=== PATIENT | male | born 1945 | race Caucasian/White ===

== ENCOUNTER 2021-09-05 16:40 | Emergency (ER) | payer OTHER ==
[2021-09-05 17:19] LABS: Urine Blood Trace-intact (Negative); Urine Glucose Negative (Negative); Urine Protein Trace (Negative); Urine Specific Gravity 1.025 (1.005-1.030)
[2021-09-05 17:20] LABS: Basophils % 0.3 % (0-1.3); Hematocrit 31.6 % (39.6-49.0); Lymphocytes % 3.3 % (15.3-44.8); MPV 8.4 fL (7.6-11.3); RBC Red Blood Cell Count 3.67 M/uL (4.33-5.43)
[2021-09-05 17:40] LABS: Albumin 2.7 g/dL (3.4-5.0); Bilirubin Direct 0.2 mg/dL (0-0.2); Bilirubin Total 0.5 mg/dL (0.2-1.0); Potassium 4.5 mmol/L (3.5-5.1); Protein, Total 7.2 g/dL (6.4-8.2)
[2021-09-05] MEDS ORDERED: ONDANSETRON 4 MG/2 ML VIAL ONE (18:07)
[2021-09-05] MEDS ORDERED: NA CHLORIDE 0.9% 1,000 ML ONE ×2 (18:08→20:09)
[2021-09-05] MEDS ORDERED: MORPHINE 2 MG/ML SYR ONE ×2 (20:15→22:30)
[2021-09-05 20:30] LABS: Anisocytosis 1+; Blood Morphology Comment NOTED (NOT SEEN); Platelet Estimate INCR
--- NOTE | 2021-09-05 20:50 | RAD REPORT ---
EXAM DESCRIPTION: CT - Head Brain Wo Cont - 09/05/2021 8:36 pm CLINICAL HISTORY: vomiting, weakness COMPARISON: No comparisons TECHNIQUE: All CT scans are performed using dose optimization technique as appropriate and may inclu de automated exposure control or mA/KV adjustment according to patient size. FINDINGS: No intracranial hemorrhage, hydrocephalus or extra-axial fluid collection.No areas of brai n edema or evidence of midline shift. Moderate chronic small vessel ischemic changes. Cerebral atroph y. Calcific atherosclerosis of the intracranial vessels. The paranasal sinuses and mastoids are clear. The calvarium is intact. IMPRESSION: No acute intracranial abnormality.
--- NOTE | 2021-09-05 20:57 | RAD REPORT ---
EXAM DESCRIPTION: CTAbdomen Pelvis Wo Contrast - 09/05/2021 8:37 pm CLINICAL HISTORY: Abd pain;Nausea / vomiting COMPARISON: Abdomen Pelvis W/Wo Contrast dated 07/31/2021; Abdomen Exam Complete dated 07/02/2021 TECHNIQUE: CT of the abdomen and pelvis was performed. All CT scans are performed using dose optimization technique as appropriate and may include automated exposure control or mA/KV adjustment according to patient size. FINDINGS: Lower chest: Multi-vessel coronary artery disease. No pericardial effusion. Dependent atel ectasis. Liver: No acute abnormality or suspicious lesions. Biliary: Cholecystectomy. Stomach: No significant focal abnormality. Duodenum: No significant focal abnormality. Pancreas: No significant abnormality. Spleen: Splenomegaly. Adrenal: Adrenal nodularity without suspicious masses. Kidney/ureter: No hydronephrosis. No renal calculi. Retroperitoneum: No retroperitoneal adenopathy. Vascular: No aneurysm. Atherosclerosis. Bowel: Diverticulosis. No bowel obstruction.. Peritoneum: New gas and fluid containing collection in the right lower quadrant measuring 10.8 x 5.9 cm. No free air is identified. The appendix is no longer identified. Bladder: Grossly unremarkable. Reproductive: No adnexal masses. Bones: No acute fracture. Multilevel degenerative changes are present in the spine. Other: n/a IMPRESSION: New gas and fluid containing right lower quadrant fluid collection concerning for an abs cess presumably due to appendiceal perforation.
[2021-09-05] MEDS ORDERED: METRONIDAZOLE 500mg IVPB 500 MG/100 ML BAG IV ONE (21:39)
[2021-09-05] MEDS ORDERED: Levofloxacin500mg IV 500 MG/100 ML BAG IV ONE (21:40)
--- NOTE | 2021-09-05 22:17 | EDPHYS ---
Physician Documentation [facility] Name: Homar Hendrix Age: 75 yrs Sex: Male : 1945 Arrival Date: 09/05/2021 Time: 16:44 Bed 2 Private MD: ED Physician Cl Mancini HPI: 09/05 18:40 This 75 yrs old Male presents to ER via EMS with complaints of Abdominal pain.rn 18:40 The patient presents with abdominal pain right lower quadrant. Onset: The rn symptoms/episode began/occurred at an unknown time. The symptoms do not radiate. Associated signs and symptoms: Pertinent positives: constipation, Pertinent negatives: diarrhea, fever, hematuria, shortness of breath, vomiting, vomiting blood. The symptoms are described as crampy. Modifying factors: The symptoms are alleviated by nothing, the symptoms are aggravated by touching the area. Severity of pain: At its worst the pain was moderate in the emergency department the pain is unchanged. The patient has experienced similar episodes in the past. The patient has not recently seen a physician. Patient sent in from assisted living or half-way for generalized weakness. Patient states since yesterday feeling generalized weakness as well as right-sided abdominal pain. States constipation and does not know when the last time he had a bowel movement. Denies any trauma.. Historical: - Allergies: 16:54 PENICILLINS; jt3 - Home Meds: 16:54 bupropion HCl 150 mg Oral Tb24 1 tab once daily [Active]; WelChol 625 mg oral tab 1 jt3 tabs 2 times per day [Active]; donepezil 5 mg oral TbDi 1 tab once daily [Active]; nicotine 14 mg/24 hr TD pt24 [Active]; paroxetine HCl 10 mg oral tab 1 tab once daily [Active]; - Immunization history:: Adult Immunizations up to date. - Social history:: Smoking status: Patient/guardian denies using tobacco. - Family history:: not pertinent. - Hospitalizations: : No recent hospitalization is reported. ROS: 18:40 Constitutional: Negative for fever, chills, and weight loss, Eyes: Negative for injury, rn pain, redness, and discharge, ENT: Negative for injury, pain, and discharge, Neck: Negative for injury, pain, and swelling, Cardiovascular: Negative for chest pain, palpitations, and edema, Respiratory: Negative for shortness of breath, cough, wheezing, and pleuritic chest pain, Abdomen/GI: Positive for abdominal pain and constipation Back: Negative for injury and pain, : Negative for injury, bleeding, discharge, and swelling, MS/Extremity: Negative for injury and deformity, Skin: Negative for injury, rash, and discoloration, Neuro: Negative for headache, numbness, tingling, and seizure. Exam: 18:40 Constitutional: This is a well developed, well nourished patient who is awake, alert, rn and in no acute distress. Head/Face: Normocephalic, atraumatic. Eyes: Periorbital areas with no swelling, redness, or edema. ENT: Dry mucous membranes Cardiovascular: Regular rate and rhythm. No pulse deficits. Respiratory: Speaking full sentences, unlabored. No increased work of breathing, no retractions or nasal flaring. Abdomen/GI: Soft, tender in the right lower quadrant with focal swelling in the area. No evidence of hernia. No discoloration or peritoneal signs. Skin: Warm, dry MS/ Extremity: Pulses equal, no cyanosis. Neuro: Awake and alert, GCS 15, oriented to person, place, not time. Cranial nerves II-XII grossly intact. Motor strength 4/5 in all extremities. Sensory grossly intact. Cerebellar exam normal. Vital Signs: 16:48 BP 141 / 65; Pulse 83; Resp 17; Temp 97.4; Pulse Ox 96% on R/A; Weight 82.1 kg; jt3 17:58 BP 137 / 70; Pulse 85; Resp 17; Temp 97.6; Pulse Ox 97% on R/A; jt3 19:39 BP 122 / 71; Pulse 86; Resp 20; Temp 97.8(O); Pulse Ox 98% on R/A; Pain 7/10; kc4 21:52 BP 117 / 71; Pulse 92; Resp 20; Temp 97.8; Pulse Ox 96% on R/A; Pain 3/10; kc4 22:33 BP 121 / 70; Pulse 88; Resp 20; Pulse Ox 98% on R/A; kc4 23:30 BP 127 / 74; Pulse 90; Resp 20; Pulse Ox 99% on R/A; kc4 09/06 00:02 BP 131 / 78; Pulse 90; Resp 18; Temp 98.0(A); Pulse Ox 98% on R/A; kc4 NIH Stroke Scale Scores: 09/05 17:00 NIHSS Score: 0 jt3 MDM: 16:55 Patient medically screened. rn 22:13 Differential diagnosis: appendicitis, bowel obstruction, diverticulitis, non-specific mh7 abd pain, Peptic Ulcer Disease, Perf. Duodenal Ulcer, Perf. Gastric Ulcer, Peritonitis, Pyelonephritis, Ureterolithiasis, urinary tract infection. Data reviewed: vital signs, nurses notes, EMS record, half-way records, lab test result(s), CBC, electrolytes, radiologic studies, CT scan. Data interpreted: Pulse oximetry: on room air is 96 %. Interpretation: normal. Counseling: I had a detailed discussion with the patient and/or guardian regarding: the historical points, exam findings, and any diagnostic results supporting the discharge/admit diagnosis, lab results, radiology results, the need to transfer to another facility, [facility] does not immediately have the required specialist. Response to treatment: the patient's symptoms have mildly improved after treatment. Physician consultation: Trever Loredo MD was contacted at 21:00, after a discussion of the case, a recommendation for transfer for higher level of care is made, Needs interventional radiology for drainage which is not available here.. 09/05 17:03 Order name: CBC with Diff rn 09/05 17:03 Order name: Basic Metabolic Panel; Complete Time: 17:48 rn 09/05 17:03 Order name: LFT's; Complete Time: 17:48 rn 09/05 17:03 Order name: Lipase; Complete Time: 17:48 rn 09/05 17:19 Order name: Urine Dipstick-Ancillary; Complete Time: 17:48 EDUT 09/05 17:03 Order name: CT Head Brain wo Cont; Complete Time: 21:04 rn 09/05 19:00 Order name: Abdomen ; Complete Time: 21:04 EDMS 09/05 20:30 Order name: Manual Differential EDUT 09/05 21:24 Order name: COVID-19 SARS RT PCR (Document "Date of Onset" if Symptomatic); Complete tt3 Time: 23:15 09/05 22:09 Order name: Blood Culture Adult (2) mh7 09/05 22:10 Order name: Blood Culture EDUT 09/05 17:03 Order name: IV Start; Complete Time: 17:40 rn 09/05 17:03 Order name: Urine Dipstick-Ancillary (obtain specimen) rn Administered Medications: 17:56 Drug: NS 0.9% 1000 ml Route: IV; Rate: 1000 ml; Site: right antecubital; jt3 22:36 Follow up: IV Status: Completed infusion; IV Intake: 1000ml df1 17:56 Drug: Zofran (Ondansetron) 4 mg Route: IVP; Site: right antecubital; jt3 21:53 Follow up: Response: Nausea is decreased df1 09/06 00:23 Follow up: Response: No adverse reaction 4 09/05 20:04 Drug: NS 0.9% 1000 ml Route: IV; Rate: 125 ml/hr; Site: right antecubital; kc4 09/06 00:23 Follow up: IV Status: Completed infusion 4 09/05 20:04 Drug: morphine 2 mg Route: IVP; Site: right antecubital; 4 21:32 Follow up: Response: Anxiety decreased kc4 21:53 Follow up: Response: Pain is decreased df1 21:32 Drug: LevaQUIN (levofloxacin) 500 mg Volume: 100 ml; Route: IVPB; Infused Over: 60 kc4 mins; Site: right antecubital; 22:34 Follow up: IV Status: Completed infusion; IV Intake: 100ml df1 09/06 00:23 Follow up: IV Status: Completed infusion 4 09/05 22:07 Drug: morphine 2 mg Route: IVP; Site: right antecubital; kc4 22:35 Follow up: Response: Pain is decreased df1 09/06 00:23 Follow up: Response: No adverse reaction 4 09/05 22:35 Drug: Flagyl (metroNIDAZOLE) 500 mg Volume: 100 ml; Route: IVPB; Rate: 200 ml/hr; df1 Infused Over: 30 mins; Site: right antecubital; 09/06 00:23 Follow up: IV Status: Completed infusion kc4 Disposition Summary: 09/05/21 22:16 Transfer Ordered Transfer Location: [place] [id number] Reason: Higher level of care mh7 Condition: Stable mh7 Problem: new mh7 Symptoms: have improved mh7 Accepting Physician: Dr. Jimenez(09/06/21 00:24) kc4 Diagnosis - Appendicitis, perforated with abscess [facility] Forms: - Medication Reconciliation Form [facility] - SBAR form [facility] NIH Stroke Scale - NIH Stroke Score Date: 09/05/2021 Time: 17:00 Total Score = 0 1a. Level of Consciousness (LOC) - 0(Alert) 1b. Level of Consciousness (LOC) (Month \\T\\ Age) - 0(Both) 1c. LOC Commands (Open \\T\\ Closes Eyes/Historic Sites Registrar) - 0(Both) 2. Best Gaze (Lateral Gaze Paresis) - 0(Normal) 3. Visual Field Loss - 0(No visual loss) 4. Facial Palsy - 0(Normal) 5a. Left Arm: Motor (10-second hold) - 0(No drift) 5b. Right Arm: Motor (10-second hold) - 0(No drift) 6a. Left Leg: Motor (5-second hold - always test supine) - 0(No drift) 6b. Right Leg: Motor (5-second hold - always test supine) - 0(No drift) 7. Limb Ataxia (finger/nose \\T\\ heel/cruz - test with eyes open) - 0(Absent) 8. Sensory Loss (pinprick arms/legs/face) - 0(Normal) 9. Best Language: Aphasia (description/naming/reading) - 0(No aphasia) 10. Dysarthria (speech clarity - read or repeat words) - 0(Normal) 11. Extinction and Inattention (visual/tactile/auditory/spatial/personal) - 0(No abnormality) Initials: jt3 Signatures: Dispatcher [employer] [facility] Ga Chowdhury MD MD rn Holmes, Maurice, MD MD 7 Marlyn Farrell kc4 Alexandra Horne df1 Negrito Wilkerson RN RN jt3 Corrections: (The following items were deleted from the chart) 09/05 19:00 17:04 Abdomen Pelvis W Con+CT.RAD.BRZ ordered. [facility] 09/06 00:24 09/05 22:16 Dr. Jimenez 7 kc4
--- NOTE | 2021-09-05 22:17 | ER ---
Nurse's Notes [facility] Name: Homar Hendrix Age: 75 yrs Sex: Male : 1945 Arrival Date: 09/05/2021 Time: 16:44 Bed 2 Private MD: Diagnosis: Appendicitis, perforated with abscess Presentation: 09/05 16:48 Chief complaint: EMS states: Pt. arrives via EMS from Assisted Living due to an aide jt3 believing the patient is more weak on the left side and intermittent vomiting since last night. On arrival patient has equal strength in both legs and arms. EMS states the facility stated the patient has hx of TIAs and unclear possible CVA. Pt. endorses right sided abdominal pain and is very tender to touch. Coronavirus screen: Vaccine status: Patient reports receiving the 2nd dose of the covid vaccine. Ebola Screen: Patient negative for fever greater than or equal to 101.5 degrees Fahrenheit, and additional compatible Ebola Virus Disease symptoms Patient denies exposure to infectious person. Patient denies travel to an Ebola-affected area in the 21 days before illness onset. Initial Sepsis Screen: Does the patient meet any 2 criteria? No. Patient's initial sepsis screen is negative. Does the patient have a suspected source of infection? No. Patient's initial sepsis screen is negative. Risk Assessment: Do you want to hurt yourself or someone else? Patient reports no desire to harm self or others. Onset of symptoms was September 04, 2021. 16:48 Method Of Arrival: EMS: [facility] jt3 16:48 Acuity: YIMI 3 jt3 20:05 Note pt vomited 200ml of bloody vomit. kc4 Triage Assessment: 16:54 General: Appears in no apparent distress. Behavior is calm, cooperative. Pain: jt3 Complains of pain in abdomen Pain does not radiate. Pain currently is 8 out of 10 on a pain scale. Quality of pain is described as sharp, Pain began 1 day ago. Historical: - Allergies: 16:54 PENICILLINS; jt3 - Home Meds: 16:54 bupropion HCl 150 mg Oral Tb24 1 tab once daily [Active]; WelChol 625 mg oral tab 1 jt3 tabs 2 times per day [Active]; donepezil 5 mg oral TbDi 1 tab once daily [Active]; nicotine 14 mg/24 hr TD pt24 [Active]; paroxetine HCl 10 mg oral tab 1 tab once daily [Active]; - Immunization history:: Adult Immunizations up to date. - Social history:: Smoking status: Patient/guardian denies using tobacco. - Family history:: not pertinent. - Hospitalizations: : No recent hospitalization is reported. Screenin:58 Abuse screen: Denies threats or abuse. Denies injuries from another. Nutritional jt3 screening: No deficits noted. Tuberculosis screening: No symptoms or risk factors identified. Fall Risk None identified. Assessment: 16:58 GI: Abdomen is tender to palpation in right upper quadrant and right lower quadrant jt3 Reports lower abdominal pain, nausea. 17:00 Neuro: No deficits noted. jt3 17:59 Reassessment: Patient appears in no apparent distress at this time. Pt. still endorsing jt3 right sided abdominal pain. Pt. currently drinking PO contrast. . 21:44 :. kc4 Vital Signs: 16:48 BP 141 / 65; Pulse 83; Resp 17; Temp 97.4; Pulse Ox 96% on R/A; Weight 82.1 kg; jt3 17:58 BP 137 / 70; Pulse 85; Resp 17; Temp 97.6; Pulse Ox 97% on R/A; jt3 19:39 BP 122 / 71; Pulse 86; Resp 20; Temp 97.8(O); Pulse Ox 98% on R/A; Pain 7/10; kc4 21:52 BP 117 / 71; Pulse 92; Resp 20; Temp 97.8; Pulse Ox 96% on R/A; Pain 3/10; kc4 22:33 BP 121 / 70; Pulse 88; Resp 20; Pulse Ox 98% on R/A; kc4 23:30 BP 127 / 74; Pulse 90; Resp 20; Pulse Ox 99% on R/A; kc4 09/06 00:02 BP 131 / 78; Pulse 90; Resp 18; Temp 98.0(A); Pulse Ox 98% on R/A; kc4 NIH Stroke Scale Scores: 09/05 17:00 NIHSS Score: 0 jt3 ED Course: 16:44 Patient arrived in ED. cp 16:48 Negrito Wilkerson RN is Primary Nurse. jt3 16:54 Triage completed. jt3 16:54 Arm band placed on right wrist. jt3 16:55 Chowdhury, Ga, MD is Attending Physician. rn 16:58 Patient has correct armband on for positive identification. Bed in low position. Call jt3 light in reach. Side rails up X2. 16:58 No provider procedures requiring assistance completed. jt3 17:30 Notified ED physician of a critical lab result(s). WBC 89.6. ll1 18:01 Inserted saline lock: 20 gauge in right antecubital area, using aseptic technique. jt3 19:03 Attending Physician role handed off by Ga Chowdhury MD mh7 19:03 Cl Mancini MD is Attending Physician. mh7 20:35 CT Head Brain wo Cont In Process Unspecified. EDMS 20:37 Abdomen In Process Unspecified. EDMS 21:25 Initiated transfer at [facility] with Shruthi Dan. Stated she would do a bed check tt3 and call back with their surgeon to consult with Dr. Mancini. 21:36 COVID-19 SARS RT PCR (Document "Date of Onset" if Symptomatic) Sent. kc4 21:39 Shruthi called back with Dr. Calderón, their surgeon, to speak with Dr. Mancini tt3 regarding the transfer request. 21:46 Wilkerson cath inserted, using sterile technique, 16 Fr., by ED staff, balloon inflated, to kc4 gravity drainage, returned clear yellow urine. Patient tolerated well. 21:53 COVID-19 SARS RT PCR (Document "Date of Onset" if Symptomatic) Sent. df1 22:04 Shruthi called back with Dr. Jimenez to speak with Dr. Mancini regarding the transfer tt3 request. 22:13 Shruthi Dan gave admin approval. The pt is going to [facility] - Room tt3 1531. The accepting physician is Dr. Jimenez. Nurse to call report to . Face sheet to be faxed to per Shruthi's request. 09/06 00:23 Blood Culture Adult (2) Sent. kc4 00:23 Blood Culture Sent. kc4 Administered Medications: 09/05 17:56 Drug: NS 0.9% 1000 ml Route: IV; Rate: 1000 ml; Site: right antecubital; jt3 22:36 Follow up: IV Status: Completed infusion; IV Intake: 1000ml df1 17:56 Drug: Zofran (Ondansetron) 4 mg Route: IVP; Site: right antecubital; jt3 21:53 Follow up: Response: Nausea is decreased df1 09/06 00:23 Follow up: Response: No adverse reaction 4 09/05 20:04 Drug: NS 0.9% 1000 ml Route: IV; Rate: 125 ml/hr; Site: right antecubital; kc4 09/06 00:23 Follow up: IV Status: Completed infusion [facility] 09/05 20:04 Drug: morphine 2 mg Route: IVP; Site: right antecubital; kc4 21:32 Follow up: Response: Anxiety decreased kc4 21:53 Follow up: Response: Pain is decreased df1 21:32 Drug: LevaQUIN (levofloxacin) 500 mg Volume: 100 ml; Route: IVPB; Infused Over: 60 kc4 mins; Site: right antecubital; 22:34 Follow up: IV Status: Completed infusion; IV Intake: 100ml df1 09/06 00:23 Follow up: IV Status: Completed infusion [facility] 09/05 22:07 Drug: morphine 2 mg Route: IVP; Site: right antecubital; kc4 22:35 Follow up: Response: Pain is decreased df1 09/06 00:23 Follow up: Response: No adverse reaction [facility] 09/05 22:35 Drug: Flagyl (metroNIDAZOLE) 500 mg Volume: 100 ml; Route: IVPB; Rate: 200 ml/hr; df1 Infused Over: 30 mins; Site: right antecubital; 09/06 00:23 Follow up: IV Status: Completed infusion kc4 Intake: 09/05 22:34 IV: 100ml; Total: 100ml. df1 22:36 IV: 1000ml; Total: 1100ml. df1 Outcome: 22:16 ER care complete, transfer ordered by mhAngelito 09/06 00:24 Patient left the ED. kc4 NIH Stroke Scale - NIH Stroke Score Date: 09/05/2021 Time: 17:00 Total Score = 0 1a. Level of Consciousness (LOC) - 0(Alert) 1b. Level of Consciousness (LOC) (Month \\T\\ Age) - 0(Both) 1c. LOC Commands (Open \\T\\ Closes Eyes/Recruiting Operations Consultant) - 0(Both) 2. Best Gaze (Lateral Gaze Paresis) - 0(Normal) 3. Visual Field Loss - 0(No visual loss) 4. Facial Palsy - 0(Normal) 5a. Left Arm: Motor (10-second hold) - 0(No drift) 5b. Right Arm: Motor (10-second hold) - 0(No drift) 6a. Left Leg: Motor (5-second hold - always test supine) - 0(No drift) 6b. Right Leg: Motor (5-second hold - always test supine) - 0(No drift) 7. Limb Ataxia (finger/nose \\T\\ heel/cruz - test with eyes open) - 0(Absent) 8. Sensory Loss (pinprick arms/legs/face) - 0(Normal) 9. Best Language: Aphasia (description/naming/reading) - 0(No aphasia) 10. Dysarthria (speech clarity - read or repeat words) - 0(Normal) 11. Extinction and Inattention (visual/tactile/auditory/spatial/personal) - 0(No abnormality) Initials: jt3 Signatures: Dispatcher [employer] EDMS Ga Chowdhury MD MD rn Page, Corey, JASON PA Bianka Odonnell RN RN ll1 Cl Mancini MD MD 7 Chaparro Padilla tt3 Marlyn Farrell kc4 Alexandra Horne df1 Negrito Wilkerson, SUE RN jt3
[2021-09-06 00:40] VITALS: BP 131/78; TEMP 98; O2SAT 98
--- NOTE | 2021-09-07 14:24 | EKG ---
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
== END 2021-09-06 00:24 | disposition short-term general hospital (02) ==
LOC: ER 16:40
DX: K35.33 Acute appendicitis with perforation, localized peritonitis, and gangrene, with abscess (principal); Z88.0 Allergy status to penicillin; Z20.822 Contact with and (suspected) exposure to COVID-19
CPT/HCPCS: 96365; 96367; 96361; 93005; 87040 ×2; 85025; 80048; 36415; 80076; 81003; 83690; 70450; 74176; 51702; 96375; 99284; 96366; U0003; J2270 ×2; J7030 ×2; J2405

== ENCOUNTER 2021-10-08 10:57 | Emergency (ER) | payer OTHER ==
--- OUTSIDE RECORDS SUMMARY | 2021-10-08 11:02 | XMS REPORT | Continuity of Care Document ---
:1945 Author Organization [facility] t Address [address] [place] [address] Care Team Providers Name Role Phone CRIS CALDWELL Attending Clinician Unavailable JESUSITA JIMENEZ Attending Clinician Unavailable Yunior BACA Admitting Clinician Unavailable SAYDA MONTAGUE Admitting Clinician Unavailable Payers Payer Name Policy Type Policy Number Effective Date Expiration Date S ource MEDICARE A B [id number] 2012 00:00:00 [employer] INDEMNITY [id number] 2021 NON CONTR 00:00:00 Problems This patient has no known problems. Allergies, Adverse Reactions, Alerts Allergy Allergy Status Severity Reaction(s) Onset Inactive Treating Comm ents Source Name Type Date Date Clinician PENICILL Allergy Active Other 2020-[address] [facility] [place] [facility] Medications This patient has no known medications. Vital Signs Vital Name Observation Time Observation Value Comments Source WEIGHT 2021-09-06 01:32:00 82.1 kg HEIGHT 2021-09-06 01:32:00 167.6 cm WEIGHT 2021-09-06 01:32:00 82.1 kg HEIGHT 2021-09-06 01:32:00 167.6 cm Procedures This patient has no known procedures. Encounters Start End Encounter Admission Attending Care Care Encounter Source Date/Time Date/Time Type Type Clinicians Facility Department ID 2021-09-27 2021-09-27 Outpatient [facility] [id number] [facility] 13:02:07 13:02:07 2021-09-06 2021-09-12 Inpatient ER GOLDIE CALDWELL Surgery [id number] [facility] 01:15:00 14:26:00 [place] 2021-07-17 2021-07-17 Outpatient [facility] [address] [facility] 08:56:00 08:56:00 Results Test Description Test Time Test Comments Results Result Comments Source FUNGUS CULTURE + SMEAR 2021-10-05 23:23:51 Test Item Value Reference Range Interpretation Comme nts CULTURE (BEAKER) (test code = 1095) No fungus isolated in 28 days FUNGUS SMEAR (BEAKER) (test code = 1406) No fungi seen CBC W/PLT COUNT & AUTO [id number] 14:59:35 Test Item Value Reference Range Interpretation Comments WHITE BLOOD CELL COUNT (BEAKER) 65.5 K/ L 3.5-10.5 HH (test code = 775) RED BLOOD CELL COUNT (BEAKER) 3.56 M/ L 4.63-6.08 L (test code = 761) HEMOGLOBIN (BEAKER) (test code = 9.9 GM/DL 13.7-17.5 L 410) HEMATOCRIT (BEAKER) (test code = 32.4 % 40.1-51.0 L 411) MEAN CORPUSCULAR VOLUME (BEAKER) 91.0 fL 79.0-92.2 (test code = 753) MEAN CORPUSCULAR HEMOGLOBIN 27.8 pg 25.7-32.2 (BEAKER) (test code = 751) MEAN CORPUSCULAR HEMOGLOBIN CONC 30.6 GM/DL 32.3-36.5 L (BEAKER) (test code = 752) RED CELL DISTRIBUTION WIDTH 21.0 % 11.6-14.4 H (BEAKER) (test code = 412) PLATELET COUNT (BEAKER) (test 487 K/CU MM 150-450 H code = 756) MEAN PLATELET VOLUME (BEAKER) 10.2 fL 9.4-12.4 (test code = 754) NUCLEATED RED BLOOD CELLS 0 /100 WBC 0-0 (BEAKER) (test code = 413) SARS-COV2/RT-PCR ([facility])2021-09-11 14:19:57 Test Item Value Reference Range Interpretation Comments SARS-COV2/RT-PCR Negative Negative The SARS-Co V-2 target (test code = nucleic acids a re not [id number]) detected in thi s specimen. Negative result s do not preclude SARS-C oV-2 infection and s hould not be used as the jaguar e basis for patient managem ent decisions. Nega tive results must be combine d with clinical observ ations, patient history , and epidemiological information. A false negativ e result may occur if a spec imen is improperly yared ected, transported or handled. This SARS CoV-2 test is a rapid, real-tete e RT-PCR test intended for th e qualitative detection of nu cleic acid from SARS-CoV-2 in a nasopharyngeal swab specimen collected from individuals suspected of CO VID-19 by [facility]. This test has been authorized by FDA under an EUA for use by authorized laboratories. This test is only authorized for the duration of the declaration that circumstances exist justifying the authorization of emergency use of in vitro diagnostic tests for detection and/or diagnosis of COVID-19 under Section 564(b)(1) of the Federal Food, Drug and Cosmetic Act, 21 U.S.C. 360bbb- 3(b)(1), unless the authorization is terminated or revoked sooner. Fact Sheet for Healthcare Providers: https://www.[employer] id.XOG/Documents/Xpert%20Xpress%20SARS%20CoV-2/Fact%20Sheets/3023802%20SARS-COV -2%20HEALTHCARE%20PROVIDERS%20FACT%20SHEET.pdf Fact Sheet for Healthcare Patients: https://www.[employer]/Documents/Xpert %20Xpress%20SARS%20CoV-2/Fact%20Sheets/302-3801%90SRLI-RNG-4%20PATIENT%20FACT%20 SHEET.pdfBLOOD [id number] 11:42:52 Test Item Value Reference Range Interpretation Comments CULTURE (BEAKER) (test No growth in 5 days code = 1095) The specimen volume collected for this blood culture was below the optimum (10 mL per bottle or 20 mL total). Use of lower volumes may adversely affect recovery and/or detection times of some organisms.BLOOD [id number] 11:42:41 Test Item Value Reference Range Interpretation Comments CULTURE (BEAKER) (test No growth in 5 days code = 1095) ANAEROBIC [id number] 11:31:05 Test Item Value Reference Range Interpretation Comments CULTURE (BEAKER) (test A 1+ Ba cteroides species* - code = 1095) Bacteroides pyo genes WOUND CULTURE + GRAM [id number] 09:12:57 Test Item Value Reference Interpretation Comments Range CULTURE (BEAKER) (test ESCHERICHIA COLI A 1 + Escherichia code = 1095) coli Amikacin (test code = S 1) Ampicillin + Sulbactam S (test code = 6) Aztreonam (test code = S 32) Cefepime (test code = S 51) Cefoxitin (test code = S 68) Ceftazidime (test code S = 27) Ceftriaxone (test code S = 52) Ertapenem (test code = S 38) Gentamicin (test code S = 18) Levofloxacin (test S code = 22) Meropenem (test code = S 34) Nitrofurantoin (test S code = 23) Piperacillin + S Tazobactam (test code = 29) Tetracycline (test S code = 2) Tobramycin (test code S = 25) Trimethoprim + S Sulfamethoxazole (test code = 47) CULTURE (BEAKER) (test PSEUDOMONAS A <1+ P seudomonas code = 1095) AERUGINOSA aeruginosa Amikacin (test code = See_Comment S [Auto mated 1) message] The system which generated this result transmit shen reference range : Susceptible 0-1 6 , Resistant <0 or >16 . The reference range was not used to interpret this result as normal/abnormal . Aztreonam (test code = See_Comment S [Aut omated 32) message] The system which generated this result transmit shen reference range : Susceptible 0-8 , Resistant <0 or >8 . The reference range was not u sed to interpret th is result as normal/abnormal . Cefepime (test code = See_Comment S [Auto mated 51) message] The system which generated this result transmit shen reference range : Susceptible 0-8 , Resistant <0 or >8 . The reference range was not u sed to interpret th is result as normal/abnormal . Ceftazidime (test code See_Comment S [Aut omated = 27) message] The system which generated this result transmit shen reference range : Susceptible 0-8 , Resistant <0 or >8 . The reference range was not u sed to interpret th is result as normal/abnormal . Ciprofloxacin (test See_Comment S [Automa shen code = 7) message] The system which generated this result transmit shen reference range : Susceptible 0-0 .5 , Resistant <0 or >.5 . The reference range was not used to interpret this result as normal/abnormal . Doripenem (test code = See_Comment S [Aut omated 100) message] The system which generated this result transmit shen reference range : Susceptible 0-2 , Resistant <0 or >2 . The reference range was not u sed to interpret th is result as normal/abnormal . Gentamicin (test code See_Comment S [Auto mated = 18) message] The system which generated this result transmit shen reference range : Susceptible 0-4 , Resistant <0 or >4 . The reference range was not u sed to interpret th is result as normal/abnormal . Imipenem (test code = See_Comment S [Auto mated 19) message] The system which generated this result transmit shen reference range : Susceptible 0-2 , Resistant <0 or >2 . The reference range was not u sed to interpret th is result as normal/abnormal . Levofloxacin (test See_Comment S [Automat ed code = 22) message] The system which generated this result transmit shen reference range : Susceptible 0-1 , Resistant <0 or >1 . The reference range was not u sed to interpret th is result as normal/abnormal . Meropenem (test code = See_Comment S [Aut omated 34) message] The system which generated this result transmit shen reference range : Susceptible 0-2 , Resistant <0 or >2 . The reference range was not u sed to interpret th is result as normal/abnormal . Piperacillin (test See_Comment R [Automat ed code = 24) message] The system which generated this result transmit shen reference range : Susceptible 0-1 6 , Resistant <0 or >16 . The reference range was not used to interpret this result as normal/abnormal . Piperacillin + See_Comment S [Automated Tazobactam (test code messag e] The = 29) system which generated this result transmit shen reference range : Susceptible 0-1 6 , Resistant <0 or >16 . The reference range was not used to interpret this result as normal/abnormal . Tobramycin (test code See_Comment S [Auto mated = 25) message] The system which generated this result transmit shen reference range : Susceptible 0-4 , Resistant <0 or >4 . The reference range was not u sed to interpret th is result as normal/abnormal . CULTURE (BEAKER) (test A 2+ St reptococcus code = 1095) constellatus GRAM STAIN RESULT 1+ WBCs (BEAKER) (test code = 1123) GRAM STAIN RESULT <1+ gram (BEAKER) (test code = negative rods [id number]) GRAM STAIN RESULT <1+ gram (BEAKER) (test code = positive rods [id number]) GRAM STAIN RESULT 4+ gram positive (BEAKER) (test code = cocci in chains, 446473) pairs and clusters (CELLAVISION MANUAL DIFF)2021-09-11 07:44:39 Test Item Value Reference Range Interpretation Comments NEUTROPHILS - REL 60 % (CELLAVISION)(BEAKER) (test code = 2816) LYMPHOCYTES - REL 4 % (CELLAVISION)(BEAKER) (test code = 2817) MONOCYTES - REL 9 % (CELLAVISION)(BEAKER) (test code = 2818) METAMYELOCYTES - REL 4 % 0-0 H (CELLAVISION)(BEAKER) (test code = 2821) MYELOCYTES - REL 5 % 0-0 H (CELLAVISION)(BEAKER) (test code = 2822) PROMYELOCYTES - REL 6 % 0-0 H (CELLAVSION)(BEAKER) (test code = 2825) BANDS - REL (CELLAVISION)(BEAKER) 11 % 0-10 H (test code = 2826) ATYPICAL LYMPHOCYTES - REL 1 % 0-0 H (CELLAVISION)(BEAKER) (test code = 2829) NEUTROPHILS - ABS 46.02 K/ul 1.78-5.38 H (CELLAVISION)(BEAKER) (test code = 2830) LYMPHOCYTES - ABS 3.07 K/ul 1.32-3.57 (CELLAVISION)(BEAKER) (test code = 2831) MONOCYTES - ABS 6.90 K/uL 0.30-0.82 H (CELLAVISION)(BEAKER) (test code = 2832) METAMYELOCYTES - ABS 3.07 K/uL 0.00-0.00 H (CELLAVISION)(BEAKER) (test code = 2836) MYELOCYTES-ABS 3.84 K/uL 0.00-0.00 H (CELLAVISION)(BEAKER) (test code = 2837) PROMYELOCYTES - ABS 4.60 K/uL 0.00-0.00 H (CELLAVISION)(BEAKER) (test code = 2838) BANDS - ABS (CELLAVISION)(BEAKER) 8.44 K/uL 0.00-0.80 H (test code = 2840) ATYPICAL LYMPHOCYTES - ABS 0.77 K/uL 0.00-0.00 H (CELLAVISION)(BEAKER) (test code = 2858) TOTAL COUNTED (BEAKER) (test code 100 = 1351) WBC MORPHOLOGY (BEAKER) (test Normal code = 487) PLT MORPHOLOGY (BEAKER) (test Normal code = 486) POLYCHROMATOPHILLIC RBCS(BEAKER) 2+ moderate (test code = 478) ANISOCYTOSIS (BEAKER) (test code 2+ moderate = 961) MICROCYTES (BEAKER) (test code = 2+ moderate 965) POIKILOCYTES (BEAKER) (test code 1+ few = 966) OVALOCYTES (BEAKER) (test code = 1+ few 477) ARTIFACT (CELLAVISION)(BEAKER) Present (test code = 3432) PLATELET CONCENTRATION Increased (CELLAVISION)(BEAKER) (test code = 3438) Clerk Typist ID - [id number] ID - Julia Lucinda comments: Slide comments: CBC W/PLT COUNT & AUTO [id number] 07:44:38 Test Item Value Reference Range Interpretation Comments WHITE BLOOD CELL COUNT 76.7 K/ L 3.5-10.5 HH This is a corrected (BEAKER) (test code = result . Previous 77) result was 75.3 K/ L on 09/11/2021 at 0530 CDT RED BLOOD CELL COUNT 3.69 M/ L 4.63-6.08 L This is a corrected (BEAKER) (test code = result . Previous 76) result was 3.60 M/ L on 09/11/2021 at 0530 CDT HEMOGLOBIN (BEAKER) 10.0 GM/DL 13.7-17.5 L (test code = 410) HEMATOCRIT (BEAKER) 33.1 % 40.1-51.0 L This is a corrected (test code = 411) result. Pr evious result was 32.2 % on 09/11/2021 at 0530 CDT MEAN CORPUSCULAR VOLUME 89.7 fL 79.0-92.2 This is a corrected (BEAKER) (test code = result . Previous 753) result was 89.4 fL on 09/11/2021 at 0530 CDT MEAN CORPUSCULAR 27.1 pg 25.7-32.2 This is a c orrected HEMOGLOBIN (BEAKER) result. Previous (test code = 751) result was 27.8 pg on 09/11/2021 at 0530 CDT MEAN CORPUSCULAR 30.2 GM/DL 32.3-36.5 L This is a c orrected HEMOGLOBIN CONC result. Prev ious (BEAKER) (test code = result was 31.1 752) GM/DL on 021 at 0530 CDT RED CELL DISTRIBUTION 20.7 % 11.6-14.4 H This i s a corrected WIDTH (BEAKER) (test result. Previous code = 412) result was 20.5 % on 09/11/2021 at 0530 CDT PLATELET COUNT (BEAKER) 474 K/CU MM 150-450 H This is a corrected (test code = 756) result. Pr evious result was 472 K/CU MM on 09/11/2021 at 0530 CDT MEAN PLATELET VOLUME 10.3 fL 9.4-12.4 (BEAKER) (test code = 754) NUCLEATED RED BLOOD 0 /100 WBC 0-0 CELLS (BEAKER) (test code = 413) URIC [id number] 07:24:57 Test Item Value Reference Range Interpretation Comments URIC ACID (BEAKER) (test code = 1.9 mg/dL 2.6-7.2 L 773) Clerk Typist ID - GAVIOTA MLACTATE DEHYDROGENASE (LDH)2021-09-11 07:16:59 Test Item Value Reference Range Interpretation Comments LACTATE DEHYDROGENASE (BEAKER) (test 357 U/L 125-220 H code = 635) Clerk Typist ID - GAVIOTA [id number] 07:16:58 Test Item Value Reference Range Interpretation Comments MAGNESIUM (BEAKER) (test code = 1.8 mg/dL 1.6-2.6 627) Clerk Typist ID - GAVIOTA [id number] 07:16:58 Test Item Value Reference Range Interpretation Comments PHOSPHORUS (BEAKER) (test code = 3.2 mg/dL 2.3-4.7 604) Clerk Typist ID - GAVIOTA MBASIC METABOLIC [id number] 07:16:57 Test Item Value Reference Range Interpretation Comments SODIUM (BEAKER) 135 meq/L 136-145 L (test code = 381) POTASSIUM (BEAKER) 4.3 meq/L 3.5-5.1 (test code = 379) CHLORIDE (BEAKER) 106 meq/L 98-107 (test code = 382) CO2 (BEAKER) (test 18 meq/L 22-29 L code = 355) BLOOD UREA NITROGEN 20 mg/dL 7-21 (BEAKER) (test code = 354) CREATININE (BEAKER) 0.80 mg/dL 0.57-1.25 (test code = 358) GLUCOSE RANDOM 94 mg/dL 70-105 (BEAKER) (test code = 652) CALCIUM (BEAKER) 8.0 mg/dL 8.4-10.2 L (test code = 697) EGFR (BEAKER) (test 95 mL/min/1.73 ESTIMA SHEN GFR IS code = 1092) sq m NOT ACCURATE CREATININE CLEARANCE IN PREDICTING GLOMERULAR FILTRATION RATE . ESTIMATED GFR I S NOT APPLICABLE FOR DIALYSIS PATIEN TS. Clerk Typist ID - GAVIOTA M(CELLAVISION MANUAL DIFF)2021-09-09 14:13:16 Test Item Value Reference Range Interpretation Comments NEUTROPHILS - REL 58 % (CELLAVISION)(BEAKER) (test code = 2816) LYMPHOCYTES - REL 2 % (CELLAVISION)(BEAKER) (test code = 2817) MONOCYTES - REL 4 % (CELLAVISION)(BEAKER) (test code = 2818) EOSINOPHILS - REL 2 % (CELLAVISION)(BEAKER) (test code = 2819) METAMYELOCYTES - REL 3 % 0-0 H (CELLAVISION)(BEAKER) (test code = 2821) MYELOCYTES - REL 12 % 0-0 H (CELLAVISION)(BEAKER) (test code = 2822) PROMYELOCYTES - REL 3 % 0-0 H (CELLAVSION)(BEAKER) (test code = 2825) BANDS - REL (CELLAVISION)(BEAKER) 15 % 0-10 H (test code = 2826) ATYPICAL LYMPHOCYTES - REL 1 % 0-0 H (CELLAVISION)(BEAKER) (test code = 2829) NEUTROPHILS - ABS 44.08 K/ul 1.78-5.38 H (CELLAVISION)(BEAKER) (test code = 2830) LYMPHOCYTES - ABS 1.52 K/ul 1.32-3.57 (CELLAVISION)(BEAKER) (test code = 2831) MONOCYTES - ABS 3.04 K/uL 0.30-0.82 H (CELLAVISION)(BEAKER) (test code = 2832) EOSINOPHILS - ABS 1.52 K/uL 0.04-0.54 H (CELLAVISION)(BEAKER) (test code = 2834) METAMYELOCYTES - ABS 2.28 K/uL 0.00-0.00 H (CELLAVISION)(BEAKER) (test code = 2836) MYELOCYTES-ABS 9.12 K/uL 0.00-0.00 H (CELLAVISION)(BEAKER) (test code = 2837) PROMYELOCYTES - ABS 2.28 K/uL 0.00-0.00 H (CELLAVISION)(BEAKER) (test code = 2838) BANDS - ABS (CELLAVISION)(BEAKER) 11.40 K/uL 0.00-0.80 H (test code = 2840) ATYPICAL LYMPHOCYTES - ABS 0.76 K/uL 0.00-0.00 H (CELLAVISION)(BEAKER) (test code = 2858) TOTAL COUNTED (BEAKER) (test code 100 = 1351) WBC MORPHOLOGY (BEAKER) (test Normal code = 487) LARGE PLT(BEAKER) (test code = Present 2156) POLYCHROMATOPHILLIC RBCS(BEAKER) 3+ many (test code = 478) HYPOCHROMIA (BEAKER) (test code = 2+ moderate 963) ANISOCYTOSIS (BEAKER) (test code 2+ moderate = 961) MICROCYTES (BEAKER) (test code = 2+ moderate 965) POIKILOCYTES (BEAKER) (test code 1+ few = 966) SPHEROCYTES (BEAKER) (test code = 1+ few 768) ELLIPTOCYTES (BEAKER) (test code 1+ few = 962) OVALOCYTES (BEAKER) (test code = 1+ few 477) ARTIFACT (CELLAVISION)(BEAKER) Present (test code = 3432) PLATELET CONCENTRATION Increased (CELLAVISION)(BEAKER) (test code = 3438) Clerk Typist ID - [id number] ID - Ximena PrattGeraldine comments: Slide comments: CBC W/PLT COUNT & AUTO [id number] 14:13:14 Test Item Value Reference Range Interpretation Comments WHITE BLOOD CELL COUNT (BEAKER) 76.0 K/ L 3.5-10.5 HH (test code = 775) RED BLOOD CELL COUNT (BEAKER) 3.53 M/ L 4.63-6.08 L (test code = 761) HEMOGLOBIN (BEAKER) (test code = 9.8 GM/DL 13.7-17.5 L 410) HEMATOCRIT (BEAKER) (test code = 31.3 % 40.1-51.0 L 411) MEAN CORPUSCULAR VOLUME (BEAKER) 88.7 fL 79.0-92.2 (test code = 753) MEAN CORPUSCULAR HEMOGLOBIN 27.8 pg 25.7-32.2 (BEAKER) (test code = 751) MEAN CORPUSCULAR HEMOGLOBIN CONC 31.3 GM/DL 32.3-36.5 L (BEAKER) (test code = 752) RED CELL DISTRIBUTION WIDTH 20.5 % 11.6-14.4 H (BEAKER) (test code = 412) PLATELET COUNT (BEAKER) (test 478 K/CU MM 150-450 H code = 756) MEAN PLATELET VOLUME (BEAKER) 9.8 fL 9.4-12.4 (test code = 754) NUCLEATED RED BLOOD CELLS 0 /100 WBC 0-0 (BEAKER) (test code = 413) BASIC METABOLIC [id number] 09:47:13 Test Item Value Reference Range Interpretation Comments SODIUM (BEAKER) 136 meq/L 136-145 (test code = 381) POTASSIUM (BEAKER) 4.7 meq/L 3.5-5.1 (test code = 379) CHLORIDE (BEAKER) 111 meq/L 98-107 H (test code = 382) CO2 (BEAKER) (test 16 meq/L 22-29 L code = 355) BLOOD UREA NITROGEN 22 mg/dL 7-21 H (BEAKER) (test code = 354) CREATININE (BEAKER) 0.80 mg/dL 0.57-1.25 (test code = 358) GLUCOSE RANDOM 94 mg/dL 70-105 (BEAKER) (test code = 652) CALCIUM (BEAKER) 7.5 mg/dL 8.4-10.2 L (test code = 697) EGFR (BEAKER) (test 95 mL/min/1.73 ESTIMA SHEN GFR IS code = 1092) sq m NOT ACCURATE CREATININE CLEARANCE IN PREDICTING GLOMERULAR FILTRATION RATE . ESTIMATED GFR I S NOT APPLICABLE FOR DIALYSIS PATIEN TS. Clerk Typist ID - DBCT, DRAINAGE W/ CATH [id number] 09:27:00Reason for exam:->RLQ [facility] : 1945 Sex: MFINAL REPORT CT guided right lower quadrant fluid collection drainage History: Right lower quadrant fluid collection Modality: CT, CT fluoroscopy DOSE REDUCTION: The examination was performed according to departmental dose-optimization program which includes automated exposure control, adjustment of the mA and/or kV according to patient size and/or use of iterative reconstruction technique. Sedation: Moderate sedation was administered. 0.5 mg of Versed and 25 mcg of fentanyl IV was used for moderate sedation monitored under my direction. Total intra-service time of sedation was 20 minutes. The patient's vital signs were monitored throughout the procedure and recorded in the patient's medical record by the nurse. Automobile Wrecker: Deangelo Beltran MD. Storage Architect: None. Approach: Right lower quadrant, percutaneous Estimated blood loss: < 5 cc. Specimen: 25 cc of grossly purulent appearing fluid initially aspirated, sample sent for microbiology. Technique: Informed written consent was obtained. Discussion of risks, benefits, and alternatives were made with the patient. The patient expressed understanding and agreed to proceed. A universal timeout was performed prior to starting the procedure. All elements maximal sterile barrier technique was utilized for this procedure, including utilization of sterile scrub solution for skin prep, a large sterile sheet to cover the areas of the patient that were not prepped, and hand hygiene, mask, head covering, and sterile gown for performing radiologist and scrub technologist. Patient's placed supine within the CT gantry. Initial noncontrast axial images demonstrate known air and fluid collection within the right lowerquadrant. 2% lidocaine was used for local anesthesia. Using CT guidance, a 5 Tunisian one-step catheter was advanced into the collection. There is aspiration of grossly purulent appearing fluid. A 0.035 inch wire was advanced through the catheter and coiled within the collection. The tract was dilated and an 8 Tunisian drainage catheter advanced over wire with pigtail formed within the dependent portion of the collection. Postbiopsy images confirmed placement without evidence for immediate complication.The catheter was fixed to the skin with silk suture and attached to bulb suction. A sterile dressingwas applied. The patient tolerated procedure without immediate complication. Impression: Successful CT-guided right lower quadrant fluid collection drainage with placement of an 8 Tunisian drainage catheter and aspiration of grossly purulent appearing fluid.Signed: Deangelo Beltran MDReport Verified Date/Time: 09/09/2021 09:27:41 Reading Location: [place] [address] Angio Body Reading Room CYTOMETRY [id number] 08:12:40 Test Item Value Reference Range Interpretation Comments FLOW CYTOMETRY RESULT See Separate Report POINTER (BEAKER) (test code = 2758) FLOW CYTOMETRY AP CASE # [id number] (BEAKER) (test code = 2759) LACTATE DEHYDROGENASE (LDH)2021-09-09 05:32:39 Test Item Value Reference Range Interpretation Comments LACTATE DEHYDROGENASE (BEAKER) (test 335 U/L 125-220 H code = 635) Clerk Typist ID - DBURIC [id number] 04:55:18 Test Item Value Reference Range Interpretation Comments URIC ACID (BEAKER) (test code = 2.1 mg/dL 2.6-7.2 L 773) Clerk Typist ID - MELVA [id number] 04:55:17 Test Item Value Reference Range Interpretation Comments PHOSPHORUS (BEAKER) (test code = 2.7 mg/dL 2.3-4.7 604) Clerk Typist ID - MELVA W(CELLAVISION MANUAL DIFF)2021-09-08 11:56:24 Test Item Value Reference Range Interpretation Comments NEUTROPHILS - REL 56 % (CELLAVISION)(BEAKER) (test code = 2816) LYMPHOCYTES - REL 5 % (CELLAVISION)(BEAKER) (test code = 2817) MONOCYTES - REL 8 % (CELLAVISION)(BEAKER) (test code = 2818) METAMYELOCYTES - REL 5 % 0-0 H (CELLAVISION)(BEAKER) (test code = 2821) MYELOCYTES - REL 9 % 0-0 H (CELLAVISION)(BEAKER) (test code = 2822) PROMYELOCYTES - REL 5 % 0-0 H (CELLAVSION)(BEAKER) (test code = 2825) BANDS - REL (CELLAVISION)(BEAKER) 12 % 0-10 H (test code = 2826) NEUTROPHILS - ABS 43.12 K/ul 1.78-5.38 H (CELLAVISION)(BEAKER) (test code = 2830) LYMPHOCYTES - ABS 3.85 K/ul 1.32-3.57 H (CELLAVISION)(BEAKER) (test code = 2831) MONOCYTES - ABS 6.16 K/uL 0.30-0.82 H (CELLAVISION)(BEAKER) (test code = 2832) METAMYELOCYTES - ABS 3.85 K/uL 0.00-0.00 H (CELLAVISION)(BEAKER) (test code = 2836) MYELOCYTES-ABS 6.93 K/uL 0.00-0.00 H (CELLAVISION)(BEAKER) (test code = 2837) PROMYELOCYTES - ABS 3.85 K/uL 0.00-0.00 H (CELLAVISION)(BEAKER) (test code = 2838) BANDS - ABS (CELLAVISION)(BEAKER) 9.24 K/uL 0.00-0.80 H (test code = 2840) TOTAL COUNTED (BEAKER) (test code 100 = 1351) WBC MORPHOLOGY (BEAKER) (test Normal code = 487) GIANT PLATELETS (BEAKER) (test Present code = 313) LARGE PLT(BEAKER) (test code = Present 2156) POLYCHROMATOPHILLIC RBCS(BEAKER) 3+ many (test code = 478) HYPOCHROMIA (BEAKER) (test code = 1+ few 963) ANISOCYTOSIS (BEAKER) (test code 2+ moderate = 961) MICROCYTES (BEAKER) (test code = 2+ moderate 965) POIKILOCYTES (BEAKER) (test code 1+ few = 966) SPHEROCYTES (BEAKER) (test code = 1+ few 768) ELLIPTOCYTES (BEAKER) (test code 1+ few = 962) OVALOCYTES (BEAKER) (test code = 1+ few 477) TEAR DROP CELLS (BEAKER) (test 1+ few code = 481) RALPH CELLS (BEAKER) (test code = 1+ few 474) ARTIFACT (CELLAVISION)(BEAKER) Present (test code = 3432) PLATELET CONCENTRATION Increased (CELLAVISION)(BEAKER) (test code = 3438) Clerk Typist ID - [id number] ID - Ximena Goff comments: Slide comments: CBC W/PLT COUNT & AUTO [id number] 11:56:23 Test Item Value Reference Range Interpretation Comments WHITE BLOOD CELL COUNT (BEAKER) 77.0 K/ L 3.5-10.5 HH (test code = 775) RED BLOOD CELL COUNT (BEAKER) 3.66 M/ L 4.63-6.08 L (test code = 761) HEMOGLOBIN (BEAKER) (test code = 10.1 GM/DL 13.7-17.5 L 410) HEMATOCRIT (BEAKER) (test code = 33.7 % 40.1-51.0 L 411) MEAN CORPUSCULAR VOLUME (BEAKER) 92.1 fL 79.0-92.2 (test code = 753) MEAN CORPUSCULAR HEMOGLOBIN 27.6 pg 25.7-32.2 (BEAKER) (test code = 751) MEAN CORPUSCULAR HEMOGLOBIN CONC 30.0 GM/DL 32.3-36.5 L (BEAKER) (test code = 752) RED CELL DISTRIBUTION WIDTH 20.7 % 11.6-14.4 H (BEAKER) (test code = 412) PLATELET COUNT (BEAKER) (test 464 K/CU MM 150-450 H code = 756) MEAN PLATELET VOLUME (BEAKER) 10.6 fL 9.4-12.4 (test code = 754) NUCLEATED RED BLOOD CELLS 0 /100 WBC 0-0 (BEAKER) (test code = 413) LACTATE DEHYDROGENASE (LDH)2021-09-08 10:06:21 Test Item Value Reference Range Interpretation Comments LACTATE DEHYDROGENASE (BEAKER) (test 367 U/L 125-220 H code = 635) Clerk Typist ID - [id number] 07:53:36 Test Item Value Reference Range Interpretation Comments PHOSPHORUS (BEAKER) (test code = 3.5 mg/dL 2.3-4.7 604) Clerk Typist ID - JATINDER WURIC [id number] 07:53:36 Test Item Value Reference Range Interpretation Comments URIC ACID (BEAKER) (test code = 3.3 mg/dL 2.6-7.2 773) Clerk Typist ID - JATINDER WCOMPREHENSIVE METABOLIC [id number] 07:53:35 Test Item Value Reference Range Interpretation Comments TOTAL PROTEIN 6.0 gm/dL 6.0-8.3 (BEAKER) (test code = 770) ALBUMIN (BEAKER) 3.0 g/dL 3.5-5.0 L (test code = 1145) ALKALINE PHOSPHATASE 649 U/L 40-150 H (BEAKER) (test code = 346) BILIRUBIN TOTAL 0.4 mg/dL 0.2-1.2 (BEAKER) (test code = 377) SODIUM (BEAKER) (test 139 meq/L 136-145 code = 381) POTASSIUM (BEAKER) 4.5 meq/L 3.5-5.1 (test code = 379) CHLORIDE (BEAKER) 109 meq/L 98-107 H (test code = 382) CO2 (BEAKER) (test 20 meq/L 22-29 L code = 355) BLOOD UREA NITROGEN 30 mg/dL 7-21 H (BEAKER) (test code = 354) CREATININE (BEAKER) 0.93 mg/dL 0.57-1.25 (test code = 358) GLUCOSE RANDOM 85 mg/dL 70-105 (BEAKER) (test code = 652) CALCIUM (BEAKER) 8.0 mg/dL 8.4-10.2 L (test code = 697) AST (SGOT) (BEAKER) 25 U/L 5-34 (test code = 353) ALT (SGPT) (BEAKER) 12 U/L 6-55 (test code = 347) EGFR (BEAKER) (test 80 mL/min/1.73 ESTIMA SHEN GFR IS code = 1092) sq m NOT ACCURATE CREATININE CLEARANCE IN PREDICTING GLOMERULAR FILTRATION RATE . ESTIMATED GFR I S NOT APPLICABLE FOR DIALYSIS PATIEN TS. Clerk Typist ID - JATINDER [id number] 07:53:35 Test Item Value Reference Range Interpretation Comments MAGNESIUM (BEAKER) (test code = 2.2 mg/dL 1.6-2.6 627) Clerk Typist ID - JATINDER W(CELLAVISION MANUAL DIFF)2021-09-07 10:42:08 Test Item Value Reference Range Interpretation Comments NEUTROPHILS - REL 68 % (CELLAVISION)(BEAKER) (test code = 2816) LYMPHOCYTES - REL 4 % (CELLAVISION)(BEAKER) (test code = 2817) MONOCYTES - REL 4 % (CELLAVISION)(BEAKER) (test code = 2818) METAMYELOCYTES - REL 4 % 0-0 H (CELLAVISION)(BEAKER) (test code = 2821) MYELOCYTES - REL 8 % 0-0 H (CELLAVISION)(BEAKER) (test code = 2822) PROMYELOCYTES - REL 3 % 0-0 H (CELLAVSION)(BEAKER) (test code = 2825) BANDS - REL (CELLAVISION)(BEAKER) 9 % 0-10 (test code = 2826) NEUTROPHILS - ABS 50.93 K/ul 1.78-5.38 H (CELLAVISION)(BEAKER) (test code = 2830) LYMPHOCYTES - ABS 3.00 K/ul 1.32-3.57 (CELLAVISION)(BEAKER) (test code = 2831) MONOCYTES - ABS 3.00 K/uL 0.30-0.82 H (CELLAVISION)(BEAKER) (test code = 2832) METAMYELOCYTES - ABS 3.00 K/uL 0.00-0.00 H (CELLAVISION)(BEAKER) (test code = 2836) MYELOCYTES-ABS 5.99 K/uL 0.00-0.00 H (CELLAVISION)(BEAKER) (test code = 2837) PROMYELOCYTES - ABS 2.25 K/uL 0.00-0.00 H (CELLAVISION)(BEAKER) (test code = 2838) BANDS - ABS (CELLAVISION)(BEAKER) 6.74 K/uL 0.00-0.80 H (test code = 2840) TOTAL COUNTED (BEAKER) (test code 100 = 1351) PLT MORPHOLOGY (BEAKER) (test Normal code = 486) TOXIC GRANULATION (BEAKER) (test Present code = 771) VACUOLATED NEUTROPHILS (BEAKER) Present (test code = 483) POLYCHROMATOPHILLIC RBCS(BEAKER) 2+ moderate (test code = 478) ANISOCYTOSIS (BEAKER) (test code 2+ moderate = 961) MICROCYTES (BEAKER) (test code = 2+ moderate 965) POIKILOCYTES (BEAKER) (test code 1+ few = 966) SPHEROCYTES (BEAKER) (test code = 1+ few 768) ELLIPTOCYTES (BEAKER) (test code 1+ few = 962) TEAR DROP CELLS (BEAKER) (test 1+ few code = 481) ACANTHOCYTES (BEAKER) (test code 1+ few = 471) ARTIFACT (CELLAVISION)(BEAKER) Present (test code = 3432) PLATELET CONCENTRATION Adequate (CELLAVISION)(BEAKER) (test code = 3438) Clerk Typist ID - [id number] ID - Mady Stevens comments: Slide comments:CBC W/PLT COUNT & AUTO [id number] 10:42:07 Test Item Value Reference Range Interpretation Comments WHITE BLOOD CELL COUNT (BEAKER) 74.9 K/ L 3.5-10.5 HH (test code = 775) RED BLOOD CELL COUNT (BEAKER) 3.58 M/ L 4.63-6.08 L (test code = 761) HEMOGLOBIN (BEAKER) (test code = 9.8 GM/DL 13.7-17.5 L 410) HEMATOCRIT (BEAKER) (test code = 32.6 % 40.1-51.0 L 411) MEAN CORPUSCULAR VOLUME (BEAKER) 91.1 fL 79.0-92.2 (test code = 753) MEAN CORPUSCULAR HEMOGLOBIN 27.4 pg 25.7-32.2 (BEAKER) (test code = 751) MEAN CORPUSCULAR HEMOGLOBIN CONC 30.1 GM/DL 32.3-36.5 L (BEAKER) (test code = 752) RED CELL DISTRIBUTION WIDTH 20.6 % 11.6-14.4 H (BEAKER) (test code = 412) PLATELET COUNT (BEAKER) (test 441 K/CU MM 150-450 code = 756) MEAN PLATELET VOLUME (BEAKER) 9.9 fL 9.4-12.4 (test code = 754) NUCLEATED RED BLOOD CELLS 0 /100 WBC 0-0 (BEAKER) (test code = 413) URIC [id number] 06:22:38 Test Item Value Reference Range Interpretation Comments URIC ACID (BEAKER) (test code = 10.4 mg/dL 2.6-7.2 H 773) Clerk Typist ID - GAVIOTA [id number] 05:17:13 Test Item Value Reference Range Interpretation Comments PHOSPHORUS (BEAKER) (test code = 4.1 mg/dL 2.3-4.7 604) Clerk Typist ID - FSELACTATE DEHYDROGENASE (LDH)2021-09-07 05:17:13 Test Item Value Reference Range Interpretation Comments LACTATE DEHYDROGENASE (BEAKER) (test 506 U/L 125-220 H code = 635) Clerk Typist ID - FSECOMPREHENSIVE METABOLIC [id number] 05:17:12 Test Item Value Reference Range Interpretation Comments TOTAL PROTEIN 6.3 gm/dL 6.0-8.3 (BEAKER) (test code = 770) ALBUMIN (BEAKER) 3.1 g/dL 3.5-5.0 L (test code = 1145) ALKALINE PHOSPHATASE 641 U/L 40-150 H (BEAKER) (test code = 346) BILIRUBIN TOTAL 0.5 mg/dL 0.2-1.2 (BEAKER) (test code = 377) SODIUM (BEAKER) (test 138 meq/L 136-145 code = 381) POTASSIUM (BEAKER) 5.3 meq/L 3.5-5.1 H (test code = 379) CHLORIDE (BEAKER) 108 meq/L 98-107 H (test code = 382) CO2 (BEAKER) (test 20 meq/L 22-29 L code = 355) BLOOD UREA NITROGEN 39 mg/dL 7-21 H (BEAKER) (test code = 354) CREATININE (BEAKER) 1.46 mg/dL 0.57-1.25 H (test code = 358) GLUCOSE RANDOM 128 mg/dL 70-105 H (BEAKER) (test code = 652) CALCIUM (BEAKER) 8.6 mg/dL 8.4-10.2 (test code = 697) AST (SGOT) (BEAKER) 24 U/L 5-34 (test code = 353) ALT (SGPT) (BEAKER) 14 U/L 6-55 (test code = 347) EGFR (BEAKER) (test 47 mL/min/1.73 ESTIMA SHEN GFR IS code = 1092) sq m NOT ACCURATE CREATININE CLEARANCE IN PREDICTING GLOMERULAR FILTRATION RATE . ESTIMATED GFR I S NOT APPLICABLE FOR DIALYSIS PATIEN TS. Clerk Typist ID - [id number] 05:17:12 Test Item Value Reference Range Interpretation Comments MAGNESIUM (BEAKER) (test code = 2.8 mg/dL 1.6-2.6 H 627) Clerk Typist ID - FSEFLOW [id number] 17:02:52Flow Cytometry Report Case: [id number] Authorizing Provider: Antoinette Jimenez MD Collected: 09/06/2021 05:03 AM Ordering Location: [address] Received: 09/06/2021 02:00 PM Service Pathologist: Dallin Marie MD Specimen: Other PERIPHERAL BLOOD, FLOW CYTOMETRY:-RARE MYELOBLASTS IDENTIFIED(<1%)-NO ABERRANT T LYMPHOCYTE POPULATION-INSUFFICIENTB LYMPHOCYTES FOR LYMPHOMA EVALUATION-SEE COMMENT Rare myeloblasts identified with no aberrant immunophenotype by evaluation performed. The rare, circulating blasts may be consistent with the marked left shift observed on review of the peripheral smear; however, an evolving myeloid malignancy cannot be completely ruled out. If a hematologic malignancy is suspected due to the patient's clinical history, recommend further evaluation. The results were discussed with Dr. Rajesh Martin, [facility] Hematology, on 09/06/21 at 5:01PM. [id number] of unknown leukemia,. Presented with perforated appendix Peripheral blood CD8, surface-Tescott, CD56,surface-Lambda, CD5, CD19, CD10, CD3, CD20, CD4, CD45, CD14, CD13, CD33, CD117, CD34.Specimen Viability: 98.8% Number of Events Acquired: [id number] The following populations are identified: Blasts: the dim CD45+ CD34+ blasts comprise 0.2% of total cells. The majority of these cells express CD13 and CD33 (myeloblasts). Lymphocytes: Bright CD45+ lymphocytes comprise 2.0% of total cells. T cells show a CD4:CD8 ratio of 0.5 and normal expression of the grossman T cell antigens CD3 and CD5. B cells are polytypic with a kappa:lambda ratio of 0.9. Myeloid/monocytic populations: As identified by CD45 and light scatter characteristics, granulocytes comprise the majority of cells analyzed, and CD14+ monocytescomprise 9.0% of total cells. The remaining events analyzed represent nonviable cells, non-hematolymphoid cells, and debrisThese tests were developed and their performance characteristics [facility] They have not been cleared or approved by the U.S. Food and Drug Administration. The FDA has determined that such clearance or approval is not necessary. It should not be regarded as investigational or for research. This laboratory is certified under the Clinical Laboratory Improvement Amendments of 1988 ("CLIA") as qualified to perform high- complexity clinical testing.[facility], Department of Pathology, [address] [place] [id number], [facility], Department of [facility]ology, [address] [place] [address], [id number] 17:00:25 Test Item Value Reference Range Interpretation Comments PHOSPHORUS (BEAKER) (test code = 4.7 mg/dL 2.3-4.7 604) Clerk Typist ID - BSURIC [id number] 17:00:18 Test Item Value Reference Range Interpretation Comments URIC ACID (BEAKER) (test code = 11.6 mg/dL 2.6-7.2 H 773) Clerk Typist ID - BSPERIPHERAL BLOOD SMEAR - PATHOLOGIST [id number] 13:57:41 Test Item Value Reference Range Interpretation Comments RBC MORPHOLOGY See comment Hypochromica, (BEAKER) (test normocytic an emia code = 2846) with moderate anisocytosis an d mild poikilocytosis, including elliptocytes. Rare dacrocytes and schistocyte s identified. Increased polychromasia. WBC MORPHOLOGY See comment Increased wit h (BEAKER) (test marked code = 2847) granulocytic le ft shift. Rare blasts identifi ed. Reactive lymphocytes not ed. PLT MORPHOLOGY See comment Increased wit h (BEAKER) (test normal granul ar code = 2848) morphology. Increased large and occasional giant form. No significant platelet aggregation or satellitosis identified. PERIPHERAL SMR Marked leukocytosis REVIEW (BEAKER) with left shifted (test code = granulocytic 2640) series. Rare blasts are identified. Refer to flow cytometry for further evaluation. [facility]-PATHOLOGIST- Dallin Marie MD [id number] (BEAKER) (electronic (test code = signature) 2846) PERIPHERAL BLOOD SMEAR - HOLD [id number] 11:43:36 Test Item Value Reference Range Interpretation Comments PERIPHERAL SMEAR SAVE (BEAKER) (test saved code = 1815) CBC W/PLT COUNT & AUTO [id number] 09:57:53 Test Item Value Reference Range Interpretation Comments WHITE BLOOD CELL COUNT (BEAKER) 87.3 K/ L 3.5-10.5 HH (test code = 775) RED BLOOD CELL COUNT (BEAKER) 3.63 M/ L 4.63-6.08 L (test code = 761) HEMOGLOBIN (BEAKER) (test code = 9.9 GM/DL 13.7-17.5 L 410) HEMATOCRIT (BEAKER) (test code = 32.0 % 40.1-51.0 L 411) MEAN CORPUSCULAR VOLUME (BEAKER) 88.2 fL 79.0-92.2 (test code = 753) MEAN CORPUSCULAR HEMOGLOBIN 27.3 pg 25.7-32.2 (BEAKER) (test code = 751) MEAN CORPUSCULAR HEMOGLOBIN CONC 30.9 GM/DL 32.3-36.5 L (BEAKER) (test code = 752) RED CELL DISTRIBUTION WIDTH 20.5 % 11.6-14.4 H (BEAKER) (test code = 412) PLATELET COUNT (BEAKER) (test 455 K/CU MM 150-450 H code = 756) MEAN PLATELET VOLUME (BEAKER) 10.1 fL 9.4-12.4 (test code = 754) NUCLEATED RED BLOOD CELLS 0 /100 WBC 0-0 (BEAKER) (test code = 413) (CELLAVISION MANUAL DIFF)2021-09-06 09:57:41 Test Item Value Reference Range Interpretation Comments NEUTROPHILS - REL 69 % (CELLAVISION)(BEAKER) (test code = 2816) LYMPHOCYTES - REL 2 % (CELLAVISION)(BEAKER) (test code = 2817) MONOCYTES - REL 5 % (CELLAVISION)(BEAKER) (test code = 2818) METAMYELOCYTES - REL 3 % 0-0 H (CELLAVISION)(BEAKER) (test code = 2821) MYELOCYTES - REL 5 % 0-0 H (CELLAVISION)(BEAKER) (test code = 2822) PROMYELOCYTES - REL 5 % 0-0 H (CELLAVSION)(BEAKER) (test code = 2825) BANDS - REL (CELLAVISION)(BEAKER) 11 % 0-10 H (test code = 2826) ATYPICAL LYMPHOCYTES - REL 1 % 0-0 H (CELLAVISION)(BEAKER) (test code = 2829) NEUTROPHILS - ABS 60.24 K/ul 1.78-5.38 H (CELLAVISION)(BEAKER) (test code = 2830) LYMPHOCYTES - ABS 1.75 K/ul 1.32-3.57 (CELLAVISION)(BEAKER) (test code = 2831) MONOCYTES - ABS 4.37 K/uL 0.30-0.82 H (CELLAVISION)(BEAKER) (test code = 2832) METAMYELOCYTES - ABS 2.62 K/uL 0.00-0.00 H (CELLAVISION)(BEAKER) (test code = 2836) MYELOCYTES-ABS 4.37 K/uL 0.00-0.00 H (CELLAVISION)(BEAKER) (test code = 2837) PROMYELOCYTES - ABS 4.37 K/uL 0.00-0.00 H (CELLAVISION)(BEAKER) (test code = 2838) BANDS - ABS (CELLAVISION)(BEAKER) 9.60 K/uL 0.00-0.80 H (test code = 2840) ATYPICAL LYMPHOCYTES - ABS 0.87 K/uL 0.00-0.00 H (CELLAVISION)(BEAKER) (test code = 2858) TOTAL COUNTED (BEAKER) (test code 100 = 1351) PLT MORPHOLOGY (BEAKER) (test Normal code = 486) TOXIC GRANULATION (BEAKER) (test Present code = 771) POLYCHROMATOPHILLIC RBCS(BEAKER) 1+ few (test code = 478) ANISOCYTOSIS (BEAKER) (test code 2+ moderate = 961) MICROCYTES (BEAKER) (test code = 2+ moderate 965) POIKILOCYTES (BEAKER) (test code 1+ few = 966) SCHISTOCYTES (BEAKER) (test code 1+ few = 765) SPHEROCYTES (BEAKER) (test code = 1+ few 768) TEAR DROP CELLS (BEAKER) (test 1+ few code = 481) ACANTHOCYTES (BEAKER) (test code 1+ few = 471) ARTIFACT (CELLAVISION)(BEAKER) Present (test code = 3432) PLATELET CONCENTRATION Adequate (CELLAVISION)(BEAKER) (test code = 3438) Clerk Typist ID - [id number] ID - Mady Stevens comments: Slide comments: [id number] 07:34:38 Test Item Value Reference Range Interpretation Comments MAGNESIUM (BEAKER) (test code = 2.1 mg/dL 1.6-2.6 627) Clerk Typist ID - JATINDER WCOMPREHENSIVE METABOLIC [id number] 07:34:37 Test Item Value Reference Range Interpretation Comments TOTAL PROTEIN 6.7 gm/dL 6.0-8.3 (BEAKER) (test code = 770) ALBUMIN (BEAKER) 3.3 g/dL 3.5-5.0 L (test code = 1145) ALKALINE PHOSPHATASE 557 U/L 40-150 H (BEAKER) (test code = 346) BILIRUBIN TOTAL 0.6 mg/dL 0.2-1.2 (BEAKER) (test code = 377) SODIUM (BEAKER) (test 135 meq/L 136-145 L code = 381) POTASSIUM (BEAKER) 4.7 meq/L 3.5-5.1 (test code = 379) CHLORIDE (BEAKER) 104 meq/L 98-107 (test code = 382) CO2 (BEAKER) (test 18 meq/L 22-29 L code = 355) BLOOD UREA NITROGEN 51 mg/dL 7-21 H (BEAKER) (test code = 354) CREATININE (BEAKER) 1.40 mg/dL 0.57-1.25 H (test code = 358) GLUCOSE RANDOM 120 mg/dL 70-105 H (BEAKER) (test code = 652) CALCIUM (BEAKER) 8.6 mg/dL 8.4-10.2 (test code = 697) AST (SGOT) (BEAKER) 24 U/L 5-34 (test code = 353) ALT (SGPT) (BEAKER) 13 U/L 6-55 (test code = 347) EGFR (BEAKER) (test 50 mL/min/1.73 ESTIMA SHEN GFR IS code = 1092) sq m NOT ACCURATE CREATININE CLEARANCE IN PREDICTING GLOMERULAR FILTRATION RATE . ESTIMATED GFR I S NOT APPLICABLE FOR DIALYSIS PATIEN TS. Clerk Typist ID - NICK LOperator TYLER - JATINDER WLACTATE DEHYDROGENASE (LDH)2021-09-06 07:34:37 Test Item Value Reference Range Interpretation Comments LACTATE DEHYDROGENASE (BEAKER) (test 284 U/L 125-220 H code = 635) Clerk Typist ID - NICK LLACTIC ACID, [id number] 05:38:48 Test Item Value Reference Range Interpretation Comments LACTATE BLOOD VENOUS (2) (BEAKER) 0.95 mmol/L 0.50-2.20 (test code = 2872) Clerk Typist ID Noé FRYE WPROTHROMBIN TIME/[id number] 05:26:03 Test Item Value Reference Range Interpretation Comments PROTIME (BEAKER) 19.4 seconds 11.9-14.2 H (test code = 759) INR (ANNA) (test 1.66 See_Comment [Automat ed message] code = 370) The system [employer] generated this result transmitted ref erence range: <=5.90. The reference range was not used to int erpret this result as normal/abnormal . RECOMMENDED COUMADIN/WARFARIN INR THERAPY RANGESSTANDARD DOSE: 2.0 - 3.0 Includes: PROPHYLAXIS forvenous thrombosis, systemic embolization; TREATMENT for venous thrombosis and/or pulmonary embolus.HIGH RISK: Target INR is 2.5-3.5 for patients with mechanical heart valves.
[2021-10-08] MEDS ORDERED: NA CHLORIDE 0.9% 1,000 ML ONE ×2 (13:37→17:00)
--- NOTE | 2021-10-08 13:57 | RAD REPORT ---
EXAM DESCRIPTION: RAD - Chest Single View - 10/08/2021 1:20 pm CLINICAL HISTORY: weakness COMPARISON: July 02 TECHNIQUE: AP portable chest image was obtained 10/08/2021 1:20 pm . FINDINGS: Lungs are clear. Interstitial pattern matches comparison. Heart and vasculature are normal . No measurable pleural effusion and no pneumothorax. No acute bony abnormality seen. No acute aortic findings suspected. IMPRESSION: No acute cardiopulmonary process.
[2021-10-08 14:16] LABS: Absolute Lymphocytes (CBC) 2.7 K/uL (0.7-4.9); Basophils % 0.3 % (0-1.3); Hematocrit 26.8 % (39.6-49.0); Lymphocytes % 5.8 % (15.3-44.8); MPV 8.1 fL (7.6-11.3); RBC Red Blood Cell Count 3.22 M/uL (4.33-5.43)
[2021-10-08 14:18] LABS: Protime INR 1.71
[2021-10-08 14:20] LABS: ALT/SGPT 8 U/L (12-78); AST/SGOT 13 U/L (15-37); Albumin 3.1 g/dL (3.4-5.0); Alkaline Phosphatase 145 U/L (45-117); BUN Blood Urea Nitrogen 35 mg/dL (7-18); Bicarbonate 26 mmol/L (21-32); Bilirubin Direct 0.2 mg/dL (0-0.2); Bilirubin Total 0.4 mg/dL (0.2-1.0); Glucose Level 115 mg/dL (74-106); Magnesium 1.9 mg/dL (1.8-2.4); NT PRO-BNP 1324 pg/mL (<125); Potassium 4.2 mmol/L (3.5-5.1); Protein, Total 6.9 g/dL (6.4-8.2); Sodium Level 137 mmol/L (136-145); Troponin (Emerg Dept Use Only) < 0.02 ng/mL (0.0-0.045)
[2021-10-08 16:25] LABS: Urine Blood Negative (Negative); Urine Glucose Negative (Negative); Urine Protein Trace (Negative); Urine Specific Gravity 1.025 (1.005-1.030)
--- NOTE | 2021-10-08 16:37 | ER ---
Nurse's Notes 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 Prior to this past week pt had appendicitis. Pt c/o chronic back pain. Coronavirus screen: At this time, the client does not indicate any symptoms associated with coronavirus-19. Ebola Screen: No symptoms or risks identified at this time. Initial Sepsis Screen: Does the patient meet any 2 criteria? No. Patient's initial sepsis screen is negative. Does the patient have a suspected source of infection? No. Patient's initial sepsis screen is negative. Risk Assessment: Do you want to hurt yourself or someone else? Patient reports no desire to harm self or others. Onset of symptoms was October 08, 2021 at 12:06. 12:02 Method Of Arrival: Wheelchair ld1 12:02 Acuity: YIMI 4 ld1 Triage Assessment: 12:06 General: Appears in no apparent distress. comfortable, Behavior is calm, cooperative, ld1 appropriate for age. Pain: Complains of pain in right upper quadrant Pain does not radiate. Pain currently is 7 out of 10 on a pain scale. Quality of pain is described as dull, Pain began gradually, Is continuous. Neuro: Level of Consciousness is awake, alert, obeys commands, Oriented to person, place, time, situation, Appropriate for age. Cardiovascular: Capillary refill < 3 seconds Patient's skin is warm and dry. Respiratory: Airway is patent Respiratory effort is even, unlabored, Respiratory pattern is regular, symmetrical. GI: Reports upper abdominal pain, nausea, vomiting. : No signs and/or symptoms were reported regarding the genitourinary system. Derm: No signs and/or symptoms reported regarding the dermatologic system. Musculoskeletal: No signs and/or symptoms reported regarding the musculoskeletal system. Historical: - Allergies: 12:06 PENICILLINS; ld1 - Home Meds: 12:06 bupropion HCl 150 mg Oral Tb24 1 tab once daily [Active]; Allopurinol Oral [Active]; ld1 Aspercreme with Aloe topical [Active]; donepezil 5 mg Oral TbDi 1 tab once daily [Active]; paroxetine HCl 10 mg Oral tab 1 tab once daily [Active]; nicotine 14 mg/24 hr TD pt24 [Active]; WelChol 625 mg Oral tab 1 tabs 2 times per day [Active]; - PMHx: 12:06 Hypertensive disorder; ld1 - PSHx: 12:06 None; ld1 - Immunization history:: Adult Immunizations up to date, Client reports receiving the 2nd dose of the Covid vaccine. - Social history:: Smoking status: Patient denies any tobacco usage or history of. Patient uses alcohol. - Family history:: not pertinent. Screenin:24 Abuse screen: Denies threats or abuse. Denies injuries from another. Nutritional jh5 screening: No deficits noted. Tuberculosis screening: No symptoms or risk factors identified. Fall Risk IV access (20 points). Ambulatory Aid- Gait-. Assessment: 14:00 General: Appears comfortable, Behavior is calm, cooperative, quiet. Pain: Complains of ss pain in abdomen and right upper quadrant Pain currently is 5 out of 10 on a pain scale. Quality of pain is described as tender, Is continuous. Neuro: Level of Consciousness is awake, alert, obeys commands, Oriented to person, place, time, situation, Pressurised Container Filler are equal bilaterally. Cardiovascular: Chest pain is denied. Respiratory: Airway is patent Respiratory effort is even, unlabored, Respiratory pattern is regular, symmetrical. GI: Patient currently denies diarrhea, nausea, vomiting. EENT: Oral mucosa is moist. Derm: Skin is fragile, is thin, with poor turgor Skin is dry, Skin is pale, Skin temperature is warm. 15:00 Reassessment: Patient and/or family updated on plan of care and expected duration. Pain ss level reassessed. 16:00 Reassessment: Patient appears in no apparent distress at this time. Son at bedside. ss Call light remains within reach. AWaiting results. 17:00 Reassessment: No changes from previously documented assessment. ss 18:08 Reassessment: Report given to SUE Melgoza at [facility]. Awaiting EMS ss transportation. Vital Signs: 12:02 BP 93 / 64; Pulse 94; Resp 16; Temp 96.9(TE); Pulse Ox 97% on R/A; Weight 86.18 kg; ld1 Height 5 ft. 8 in. (172.72 cm); Pain 7/10; 14:00 BP 92 / 62; Pulse 89; Resp 15; Pulse Ox 97% on R/A; Pain 5/10; ss 16:30 BP 94 / 60; Pulse 92; Pulse Ox 96% on R/A; ss 18:00 BP 102 / 62; Pulse 90; Resp 16; Pulse Ox 97% on R/A; Pain 5/10; ss 19:15 BP 91 / 60; Pulse 89; Resp 16 S; Pulse Ox 97% on R/A; dh4 12:02 Body Mass Index 28.89 (86.18 kg, 172.72 cm) ld1 ED Course: 10:58 Patient arrived in ED. ds1 12:06 Triage completed. ld1 12:06 Arm band placed on left wrist. ld1 13:19 XRAY Chest (1 view) In Process Unspecified. EDMS 13:25 Cb Lovell MD is Attending Physician. marcie 13:33 Nelly Olmstead, RN is Primary Nurse. 5 13:50 SARS-COV-2 RT PCR (Document "Date of Onset" if Symptomatic) Sent. 5 13:51 Troponin (emerg Dept Use Only) Sent. jh5 13:51 PT-INR Sent. jh5 13:51 NT PRO-BNP Sent. jh5 13:51 Magnesium Sent. 5 13:51 LFT's Sent. 5 13:51 Basic Metabolic Panel Sent. jh5 14:25 Patient has correct armband on for positive identification. Placed in gown. Bed in low jh5 position. Call light in reach. Side rails up X2. Adult w/ patient. 14:25 Inserted saline lock: 22 gauge in right antecubital area, using aseptic technique. [facility] 14:45 Lipase Sent. [facility] 14:45 CBC with Diff Sent. [facility] 14:45 Wilkerson cath inserted, using sterile technique, 16 Fr., by ne, balloon inflated, urine [facility] specimen collected. 16:25 Urine collected: straight cath specimen, tea colored. Straight cath inserted, using [facility] sterile technique, 16 Fr. Specimen obtained. 16:44 transfer initiated by to [facility] by dr lovell. bd 16:57 CT Chest Abdomen Pelvis W/O Contrast In Process Unspecified. EDMS 18:36 No provider procedures requiring assistance completed. Patient transferred, IV remains ss in place. Administered Medications: 13:50 Drug: NS 0.9% 1000 ml Route: IV; Rate: 1 bolus; Site: right antecubital; jh5 17:25 Drug: NS 0.9% 500 ml Route: IV; Rate: bolus; Site: right antecubital; ss 17:26 Drug: Flagyl (metroNIDAZOLE) 500 mg Volume: 100 ml; Route: IVPB; Rate: 200 ml/hr; ss Infused Over: 30 mins; Site: right antecubital; 17:26 Drug: NS 0.9% 1000 ml Route: IV; Rate: 125 ml/hr; Site: right antecubital; ss Outcome: 16:36 ER care complete, transfer ordered by . marcie 18:36 Condition: good ss 18:36 Instructed on the need for transfer. 19:20 Patient left the ED. formerly [facility], [facility] Signatures: Dispatcher [employer] EDMS Nimisha Ríos Corey, MD MD cha Sanford, Demi ds1 Ronit Vargas, Heather Winter RN Cheko Rapp formerly [facility] Karolina Ochoa, RN RN [email or web address] Nelly Olmstead RN RN 5 Corrections: (The following items were deleted from the chart) 13:51 13:51 CBC+H.LAB.BRZ drawn and sent. [facility] EDIN
--- NOTE | 2021-10-08 16:37 | EDPHYS ---
Physician Documentation [facility] Name: Homar Hendrix Age: 76 yrs Sex: Male : 1945 Arrival Date: 10/08/2021 Time: 10:58 Bed 10 Private MD: KAREN Physician Cb Lovell HPI: 10/08 12:09 This 76 yrs old Male presents to ER via Wheelchair with complaints of Pain and cp Dehydration. 16:08 This 76 yrs old Male presents to ER via Wheelchair with complaints of Pain marcie and Dehydration. 16:08 The patient presents with abdominal pain in the lower abdomen. Onset: The marcie symptoms/episode began/occurred 3 day(s) ago. The symptoms do not radiate. Associated signs and symptoms: Pertinent positives: anorexia, nausea. The symptoms are described as constant, crampy. Modifying factors: The symptoms are alleviated by nothing, remaining still, the symptoms are aggravated by movement, pressure, walking. Severity of pain: At its worst the pain was moderate in the emergency department the pain is unchanged. The patient has experienced similar episodes in the past, several times. Historical: - Allergies: 12:06 PENICILLINS; ld1 - Home Meds: 12:06 bupropion HCl 150 mg Oral Tb24 1 tab once daily [Active]; Allopurinol Oral [Active]; ld1 Aspercreme with Aloe topical [Active]; donepezil 5 mg Oral TbDi 1 tab once daily [Active]; paroxetine HCl 10 mg Oral tab 1 tab once daily [Active]; nicotine 14 mg/24 hr TD pt24 [Active]; WelChol 625 mg Oral tab 1 tabs 2 times per day [Active]; - PMHx: 12:06 Hypertensive disorder; ld1 - PSHx: 12:06 None; ld1 - Immunization history:: Adult Immunizations up to date, Client reports receiving the 2nd dose of the Covid vaccine. - Social history:: Smoking status: Patient denies any tobacco usage or history of. Patient uses alcohol. - Family history:: not pertinent. ROS: 12:09 Constitutional: Negative for fever. cp 12:09 Cardiovascular: Negative for chest pain. 12:09 Abdomen/GI: Positive for abdominal pain, vomiting, anorexia. 12:09 Neuro: Positive for weakness. 12:09 All other systems are negative. 16:08 Constitutional: Negative for fever, chills, and weight loss, Eyes: Negative for injury, marcie pain, redness, and discharge, ENT: Negative for injury, pain, and discharge, Neck: Negative for injury, pain, and swelling, Cardiovascular: Negative for chest pain, palpitations, and edema, Respiratory: Negative for shortness of breath, cough, wheezing, and pleuritic chest pain, Back: Negative for injury and pain, : Negative for injury, bleeding, discharge, and swelling, MS/Extremity: Negative for injury and deformity, Neuro: Negative for headache, weakness, numbness, tingling, and seizure, Psych: Negative for depression, anxiety, suicide ideation, homicidal ideation, and hallucinations, Allergy/Immunology: Negative for hives, rash, and allergies, Endocrine: Negative for neck swelling, polydipsia, polyuria, polyphagia, and marked weight changes, Hematologic/Lymphatic: Negative for swollen nodes, abnormal bleeding, and unusual bruising. 16:08 Abdomen/GI: Positive for abdominal pain. Exam: 12:09 Head/Face: Normocephalic, atraumatic. cp 12:09 Constitutional: The patient appears in no acute distress, alert, awake, non-toxic, well developed, well nourished. 12:09 Chest/axilla: Inspection: normal. 12:09 Cardiovascular: Rate: normal. 12:09 Respiratory: the patient does not display signs of respiratory distress, Respirations: normal, no use of accessory muscles, no retractions, labored breathing, is not present, Breath sounds: are clear throughout, no decreased breath sounds. 12:09 Abdomen/GI: Palpation: soft, in all quadrants, mild abdominal tenderness, in all quadrants, rebound tenderness, is not appreciated, involuntary guarding, is not appreciated. 12:09 Neuro: Orientation: to person, place \\T\\ time. 16:10 ECG was reviewed by the Attending Physician. [facility] Vital Signs: 12:02 BP 93 / 64; Pulse 94; Resp 16; Temp 96.9(TE); Pulse Ox 97% on R/A; Weight 86.18 kg; ld1 Height 5 ft. 8 in. (172.72 cm); Pain 7/10; 14:00 BP 92 / 62; Pulse 89; Resp 15; Pulse Ox 97% on R/A; Pain 5/10; ss 16:30 BP 94 / 60; Pulse 92; Pulse Ox 96% on R/A; ss 18:00 BP 102 / 62; Pulse 90; Resp 16; Pulse Ox 97% on R/A; Pain 5/10; ss 19:15 BP 91 / 60; Pulse 89; Resp 16 S; Pulse Ox 97% on R/A; dh4 12:02 Body Mass Index 28.89 (86.18 kg, 172.72 cm) ld1 MDM: 13:25 Patient medically screened. marcie 16:11 Differential diagnosis: appendicitis, bowel obstruction, cholecystitis, Cholelithiasis, marcie diverticulitis, gastritis, non-specific abd pain, pancreatitis, Peptic Ulcer Disease, Peritonitis, Pyelonephritis, Ureterolithiasis, urinary tract infection. Data reviewed: vital signs, nurses notes, lab test result(s), EKG, radiologic studies, CT scan, plain films. Data interpreted: manager clinical pharmacy: rate is 94 beats/min, rhythm is regular, Pulse oximetry: on room air is 97 %. Test interpretation: by ED physician or midlevel provider: ECG, plain radiologic studies. Counseling: I had a detailed discussion with the patient and/or guardian regarding: the historical points, exam findings, and any diagnostic results supporting the discharge/admit diagnosis, lab results, radiology results, the need to transfer to another facility. 10/08 12:09 Order name: Basic Metabolic Panel; Complete Time: 15:47 cp 10/08 12:09 Order name: CBC with Diff cp 10/08 12:09 Order name: LFT's; Complete Time: 15:47 cp 10/08 12:09 Order name: Magnesium; Complete Time: 15:47 cp 10/08 12:09 Order name: NT PRO-BNP; Complete Time: 15:47 cp 10/08 12:09 Order name: PT-INR; Complete Time: 15:47 cp 10/08 12:09 Order name: Troponin (emerg Dept Use Only); Complete Time: 15:47 cp 10/08 12:09 Order name: XRAY Chest (1 view); Complete Time: 15:47 cp 10/08 13:26 Order name: Lipase [facility] 10/08 13:26 Order name: SARS-COV-2 RT PCR (Document "Date of Onset" if Symptomatic); Complete Time: marcie 15:47 10/08 13:27 Order name: Lipase; Complete Time: 15:47 EDMS 10/08 16:00 Order name: CT Chest Abdomen Pelvis W/O Contrast; Complete Time: 18:15 marcie 10/08 16:25 Order name: Urine Dipstick-Ancillary; Complete Time: 16:36 EDMS 10/08 16:34 Order name: Lactate; Complete Time: 18:15 bd 10/08 12:09 Order name: EKG; Complete Time: 12:09 cp 10/08 12:09 Order name: Cardiac monitoring; Complete Time: 13:36 cp 10/08 12:09 Order name: EKG - Nurse/Tech; Complete Time: 14:01 cp 10/08 12:09 Order name: IV Saline Lock; Complete Time: 13:51 cp 10/08 12:09 Order name: Labs collected and sent; Complete Time: 13:51 cp 10/08 12:09 Order name: O2 Per Protocol; Complete Time: 13:36 cp 10/08 12:09 Order name: O2 Sat Monitoring; Complete Time: 13:36 cp 10/08 13:26 Order name: Urine Dipstick-Ancillary (obtain specimen); Complete Time: 14:45 [facility] 10/08 16:45 Order name: IV Saline Lock - Large Bore; Complete Time: 17:26 marcie EC:10 Rate is 80 beats/min. Rhythm is regular. QRS [place] is Normal. [place] interval is normal. QRS marcie interval is prolonged at 104 msec. QT interval is normal. No Q waves. T waves are Normal. No ST changes noted. Clinical impression: Abnormal EKG without significant change and No evidence of ischemia. Interpreted by me. Reviewed by me. Administered Medications: 13:50 Drug: NS 0.9% 1000 ml Route: IV; Rate: 1 bolus; Site: right antecubital; jh5 17:25 Drug: NS 0.9% 500 ml Route: IV; Rate: bolus; Site: right antecubital; ss 17:26 Drug: Flagyl (metroNIDAZOLE) 500 mg Volume: 100 ml; Route: IVPB; Rate: 200 ml/hr; ss Infused Over: 30 mins; Site: right antecubital; 17:26 Drug: NS 0.9% 1000 ml Route: IV; Rate: 125 ml/hr; Site: right antecubital; ss Disposition Summary: 10/08/21 16:36 Transfer Ordered Transfer Location: [facility] marcie Reason: Higher level of care marcie Condition: Fair marcie Problem: new marcie Symptoms: have improved marcie Accepting Physician: to [facility](10/08/21 19:20) 4 Diagnosis - Abdominal tenderness - complications of perforated appendicitis marcie - Elevated white blood cell count - CHRONIC MYELOID LEUKEMIA marcie - Anemia, unspecified marcie - Anorexia marcie - Unspecified kidney failure - CHRONIC marcie Forms: - Medication Reconciliation Form marcie - SBAR form marcie Signatures: Dispatcher [employer] EDTX Cb Lovell MD MD cha Smirch, Shelby, RN RN Cb Tom PA PA cp Huhn, Donald 4 Karolina Ochoa RN RN ld1 Nelly Olmstead RN RN jh5 Corrections: (The following items were deleted from the chart) 13:51 12:09 CBC+H.LAB.BRZ ordered. EDTX EDMS 19:20 16:36 to [facility] marcie 4
--- NOTE | 2021-10-08 17:49 | RAD REPORT ---
EXAM DESCRIPTION: CT - Chest Abd Pelvis Wo Con - 10/08/2021 4:57 pm CLINICAL HISTORY: Abdominal distention;Pain Abdominal distention;Pain, chest pain COMPARISON: Abdomen Pelvis Wo Contrast dated 09/05/2021 TECHNIQUE: Axial 5 millimeter thick images of the chest, abdomen and pelvis were obtained without IV contrast. Oral contrast was administered. All CT scans are performed using dose optimization technique as appropriate and may include automated exposure control or mA/KV adjustment according to patient size. FINDINGS: Fibrotic stranding is seen in the mid and lower lung rodrigeus with no acute infiltrate. No s uspicious mass. No pneumothorax or pleural effusion. No chest wall mass or abnormal axillary lymphad enopathy seen. Mediastinal and hilar regions show no mass or lymphadenopathy. No significant cardia c finding. Hepatosplenomegaly is present with the liver 20 cm in maximum craniocaudal dimension and the spleen 1 7 cm in maximum transverse diameter. No focal lesions seen on noncontrast imaging. No pancreatic or p eripancreatic abnormality seen. Cholecystectomy clips are present with no biliary tree dilatation. No hydronephrosis or suspicious renal mass. Isodense masses and pyelonephritis cannot be excluded on non contrast imaging. No adrenal abnormalities. No urinary bladder abnormalities. No gastric dilatation or gastric wall thickening. No acute colon finding seen. In the lateral right m id abdomen at the umbilical level a there is thickening and edema of the abdominal wall and musculatu re. Approximately 6 x 2 centimeter low-density collection is present. Within this collection is a 17 millimeter diameter focus of extraluminal air. The September 05 study showed a very large intraabdomina l abscess within the peritoneal cavity at this location. Several distal small bowel loops abut the ab dominal wall at this level. Tip of the cecum and appendix also about this focal finding. No information is available regarding drainage procedure or surgery for the abscess. No drain tube is in place. The abdominal wall changes are probably very minimal remnant of the 9-10 centimeter sized area previously present. No ascites is present. No other free air collections present. No hernia, mass or bulky lymphadenopath y. No significant bone or vascular finding. IMPRESSION: Right lateral abdominal wall thickening and edema with a small extraluminal free air col lection. This is believed to be remnant of the much larger 10 centimeter diameter intraperitoneal and abdominal wall abscess that was detailed on the September 05 study. No information is available regarding surgery or drainage procedure for the earlier abscess. The curr ent abdominal wall findings would not be unexpected as an unresolved remnant of the earlier abscess. No intraperitoneal abscess, free air or surgically emergent finding. There is no ascites, bowel obstr uction or other emergent finding.
[2021-10-08] MEDS ORDERED: METRONIDAZOLE 500mg IVPB 500 MG/100 ML BAG IV ONE (18:00)
[2021-10-08 19:29] VITALS: TEMP 96.9
[2021-10-08 19:33] VITALS: O2SAT 97
[2021-10-08 19:34] VITALS: BP 91/60
[2021-10-08 20:36] LABS: Anisocytosis 2+; Blood Morphology Comment NOTED (NOT SEEN); Platelet Estimate INCR
--- NOTE | 2021-10-09 16:23 | EKG ---
Test Date: 2021-10-08 Test Time: 13:57:42 Mental Health Assistant: JR Cooley MEASUREMENT RESULTS: Intervals: Rate: 80 FL: 162 QRSD: 104 QT: 378 QTc: 435 [place]: P: 46 FL: 162 QRS: -3 T: 108 INTERPRETIVE STATEMENTS: Sinus rhythm with occasional premature ventricular complexes and premature atrial complexes Low voltage QRS Cannot rule out Anteroseptal infarct, age undetermined Abnormal ECG Compared to ECG 09/05/2021 17:08:46 Atrial premature complex(es) now present Low QRS voltage now present Fusion complex(es) no longer present Myocardial infarct finding still present Electronically Signed On 10-09-21 16:22:07 RADIO INTERFERENCE INVESTIGATOR by Viraj Palma
== END 2021-10-08 19:20 | disposition short-term general hospital (02) ==
LOC: ER 10:57
DX: K35.32 Acute appendicitis with perforation, localized peritonitis, and gangrene, without abscess (principal); C92.10 Chronic myeloid leukemia, BCR/ABL-positive, not having achieved remission; I10 Essential (primary) hypertension; D64.9 Anemia, unspecified; R63.0 Anorexia; Z68.28 Body mass index [BMI] 28.0-28.9, adult; I12.9 Hypertensive chronic kidney disease with stage 1 through stage 4 chronic kidney disease, or unspecified chronic kidney disease; N18.9 Chronic kidney disease, unspecified; Z88.0 Allergy status to penicillin; Z20.822 Contact with and (suspected) exposure to COVID-19
CPT/HCPCS: 93005; 85025; 80048; 36415; 83735; 85610; 80076; 83605; 81003; 84484; 83690; 83880; 71250; 74176; 71045; 51702 ×2; 96374; 99284; U0003; J7030 ×2